=== PATIENT | female | born 1995 | race Caucasian/White ===

== ENCOUNTER 2020-04-06 19:09 | Emergency (ER) | payer BC | END 2020-04-06 19:26 | disposition home or self-care (01) | LOC: JVIRT 19:09 | DX: Z03.818 Encounter for observation for suspected exposure to other biological agents ruled out (principal) | CPT/HCPCS: C9803; Q3014-GT; U0003 ==

== ENCOUNTER 2020-04-16 16:44 | Emergency (ER) | payer BC | END 2020-04-16 17:01 | disposition home or self-care (01) | LOC: JVIRT 16:44 | DX: Z03.818 Encounter for observation for suspected exposure to other biological agents ruled out (principal) | CPT/HCPCS: C9803; Q3014-GT; U0003 ==